=== PATIENT | female | born 1995 | race Caucasian/White ===

== ENCOUNTER 2017-02-01 12:06 | Inpatient (IN) | payer MEDICAID ==
[~2017-02-01] VITALS: Ht 160 cm; Wt 107.3 kg
[2017-02-01] MEDS ORDERED: IBUPROFEN 600 MG TAB PO PRN (12:30)
[2017-02-01] MEDS ORDERED: OXYTOCIN 30 UNITS/LR 500 ML IV SCH ×3 (12:30→15:30)
[2017-02-01] MEDS ORDERED: BUTORPHANOL 2 MG INJ IV PRN (12:30)
[2017-02-01] MEDS ORDERED: LIDOCAINE 1% (MPF) 30 ML INJ INJ PRN (12:30)
[2017-02-01] MEDS ORDERED: OXYTOCIN 30 UNITS/LR 500 ML IV PRN (12:30)
[2017-02-01] MEDS ORDERED: AMPICILLIN 2 GM/NS (PMX) 100 ML IV ONE (12:30)
[2017-02-01] MEDS ORDERED: CARBOPROST 250 MCG INJ IM PRN (12:30)
[2017-02-01] MEDS ORDERED: METHYLERGONOVINE 0.2 MG INJ IM PRN (12:30)
[2017-02-01] MEDS ORDERED: MISOPROSTOL 200 MCG TAB PR PRN (12:30)
[2017-02-01 12:38] VITALS: Ht 160 cm; Wt 107.3 kg
[2017-02-01 12:39] VITALS: BP 131/73; PULSE 71; RESP 18
[2017-02-01] MEDS ORDERED: LACTATED RINGER'S 1,000 ML IV PRN (13:00)
[2017-02-01 13:22] LABS: ADD SCAN DIFF NO
[2017-02-01 13:24] LABS: BASOPHIL # 0.1 10^3/ul (0.0-0.1); BASOPHILS % 0.5 % (0.0-2.0); EOSINOPHILS # 0.1 10^3/ul (0.0-0.5); EOSINOPHILS % 0.5 % (0.0-7.0); HEMATOCRIT 34.5 % (37.0-47.0); HEMOGLOBIN 11.6 g/dl (12.0-16.0); MEAN CORPUSCULAR HEMOGLOBIN 30.3 pg (29.0-33.0); MEAN CORPUSCULAR HGB CONC 33.6 g/dl (32.0-37.0); MEAN CORPUSCULAR VOLUME 90.1 fl (82.0-101.0); MEAN PLATELET VOLUME 9.7 fl (7.4-10.4); MONOCYTE # 0.5 10^3/ul (0.3-0.9); NEUTROPHIL # 7.3 10^3/ul (1.6-7.5); NEUTROPHILS % 72.4 % (39.0-77.0); PLATELET COUNT 295 10^3/UL (140-415); RED BLOOD COUNT 3.83 10^6/ul (4.20-5.40); RED CELL DISTRIBUTION WIDTH 13.5 % (11.5-14.5); WHITE BLOOD COUNT 10.1 10^3/ul (4.8-10.8)
[2017-02-01 13:36] LABS: INR 0.86; PROTIME 11.7 Sec (12.2-14.2); PT RATIO 0.9
[2017-02-01 13:37] LABS: PARTIAL THROMBOPLASTIN TIME 24.1 Sec (25.0-35.0)
[2017-02-01] MEDS: LACTATED RINGER'S 1,000 ML IV SCH ×2 (13:42→21:39)
[2017-02-01] MEDS: AMPICILLIN 1 GM/NS (PMX) 50 ML IV SCH ×2 (18:02→21:50)
[2017-02-01] MEDS ORDERED: MINERAL OIL LIGHT 10 ML VIAL TOP PRN (20:00)
[2017-02-01] MEDS ORDERED: FENTAnyl 2MCG/ML-ROPIV 0.2% 100 ML ONE (20:57)
[2017-02-01] MEDS ORDERED: FENTAnyl 2MCG/ML-ROPIV 0.2% 100 ML BAG EPI SCH (21:00)
[2017-02-01] MEDS ORDERED: NALOXONE (0.4 MG/ML) INJ IV PRN (21:00)
[2017-02-01] MEDS ORDERED: ONDANSETRON 4 MG INJ IV PRN (21:00)
[2017-02-01] MEDS ORDERED: DIPHENHYDRAMINE 50 MG INJ IV PRN (21:00)
[2017-02-02] MEDS: AMPICILLIN 1 GM/NS (PMX) 50 ML IV SCH ×3 (01:54→10:05)
[2017-02-02] MEDS: LACTATED RINGER'S 1,000 ML IV SCH ×2 (05:38→10:05)
[2017-02-02] MEDS ORDERED: MINERAL OIL LIGHT 10 ML VIAL TOP ONE (10:30)
--- NOTE | 2017-02-02 11:16 | LDN ---
Date/Time of Note Date/Time of Note DATE: 02/02/17 TIME: 11:12 Delivery Summary Normal spontaneous vaginal delivery of a baby boy from OP presentation, shoulders delivered without difficulty the rest of the baby's body followed, placenta spontaneous expulsion inspected complete post delivery vaginal exam no laceration, estimated blood loss 250cc Placenta Delivered: Spontaneously Perineum intact?: Yes Anesthesia type: Epidural Sponge & Needle done & correct: Yes All needle counts correct: Yes Any foreign bodies felt in the: No Problems: Infant Delivery Information Sex Infant Sex: male Apgars 1 Minute: 9 5 Minute: 9 Suctioning Nose & mouth suctioned at kristine: Yes Delee suction performed: No Umbilical Cord Umbilical cord with: 3 Vessels Cord presentations: nuchal cord Cord Blood was obtained: Yes GAB HALL MD Feb 02, 2017 11:15
--- NOTE | 2017-02-02 11:20 | HP ---
Date/Time of Note Date/Time of Note DATE: 02/02/17 TIME: 11:16 OB - History Hx of Present Free Text/Dictation 20 years old female 240 EDC of January 30 admitted to [facility] very early labor requires labor augmentation with Pitocin IV infusion, this patient has been under the care of the [facility] and her was not complicated with gestational diabetes -induced hypertension or any other surgical or medical conditions Allergies denies allergy to any known medication Social habit denies smoking or drinking Estimated Due Date: Jan 30, 2017 : 2 Para: 1 Care: Good Care Medical Complications: None Past Family/Social History * Past Medical, Surgical, Family and Obstetric Histories reviewed from chart. Rubella: immune RPR/VDRL: Negative GBS Status: Negative HBsAG: Negative OB Admission Exam Vital Signs Vital Signs Vital Signs Date Time Temp Pulse Resp B/P Pulse Ox O2 Delivery O2 Flow Rate FiO2 02/01/17 12:39 98.0 71 18 131/73 Room Air Physical Exam HEENT: WNL Heart: Rhythm Normal Lungs: Clear, Equal Abdomen: WNL Extremities: Normal Reflexes: Normal Effacement: 50% Station: -1 Membranes: Intact Heart Rate: 130's Accelerations: Accelerations Present Decelerations: No Decelerations Varibility: Minimum Contractions on Admission: 6-10 Minutes Apart Intensity: Mild Last 72 hours Lab Results CBC & BMP 02/01/17 13:10 OB Assessment/Plan Reason for admission: induction of labor, other GAB HALL MD Feb 02, 2017 11:20
[2017-02-02 13:15] VITALS: BP 134/66; PULSE 67; RESP 19
[2017-02-02] MEDS ORDERED: ACETAMINOPHEN/CODEINE #3 TAB PO PRN ×2 (13:30)
[2017-02-02] MEDS ORDERED: WITCH HAZEL/GLYCERIN PAD PR PRN (13:30)
[2017-02-02] MEDS ORDERED: DIBUCAINE 1% 30 GM OINT PR PRN (13:30)
[2017-02-02] MEDS ORDERED: OXYCODONE/ASPIRIN (4.88/325) TAB PO PRN ×2 (13:30)
[2017-02-02] MEDS ORDERED: ONDANSETRON 4 MG INJ IV PRN (13:30)
[2017-02-02] MEDS ORDERED: ACETAMINOPHEN 325 MG TAB PO PRN (13:30)
[2017-02-02] MEDS ORDERED: LANOLIN 7 GM TUBE TOP PRN (13:30)
[2017-02-02] MEDS ORDERED: BENZOCAINE 20% 56 ML SPRAY TOP PRN (13:30)
[2017-02-02 13:45] VITALS: BP 137/87; PULSE 76; RESP 18
[2017-02-02] MEDS: OXYTOCIN 30 UNITS/LR 500 ML IV SCH ×2 (15:15→19:17)
[2017-02-02 15:45] VITALS: BP 136/64; PULSE 67; RESP 20
[2017-02-02] MEDS: IBUPROFEN 600 MG TAB PO SCH ×2 (18:32→23:57)
[2017-02-02 19:45] VITALS: BP 131/76; PULSE 64; RESP 19
[2017-02-02] MEDS: SENNA/DOCUSATE NA (8.6MG/50MG) TAB PO SCH (21:35)
[2017-02-03 04:15] VITALS: BP 114/73; PULSE 76; RESP 18
[2017-02-03] MEDS: IBUPROFEN 600 MG TAB PO SCH ×3 (05:38→17:56)
[2017-02-03 08:00] LABS: ADD SCAN DIFF NO
[2017-02-03 08:16] LABS: BASOPHILS % 0.4 % (0.0-2.0); EOSINOPHILS # 0.1 10^3/ul (0.0-0.5); EOSINOPHILS % 1.3 % (0.0-7.0); HEMATOCRIT 29.3 % (37.0-47.0); HEMOGLOBIN 9.6 g/dl (12.0-16.0); LYMPHOCYTES # 2.5 10^3/ul (0.8-2.9); LYMPHOCYTES % 32.8 % (15.0-51.0); MEAN CORPUSCULAR HEMOGLOBIN 30.3 pg (29.0-33.0); MEAN CORPUSCULAR HGB CONC 32.8 g/dl (32.0-37.0); MEAN CORPUSCULAR VOLUME 92.4 fl (82.0-101.0); MEAN PLATELET VOLUME 10.1 fl (7.4-10.4); MONOCYTE # 0.5 10^3/ul (0.3-0.9); MONOCYTES % 6.1 % (0.0-11.0); NEUTROPHIL # 4.4 10^3/ul (1.6-7.5); NEUTROPHILS % 57.9 % (39.0-77.0); PLATELET COUNT 216 10^3/UL (140-415); RED BLOOD COUNT 3.17 10^6/ul (4.20-5.40); RED CELL DISTRIBUTION WIDTH 13.8 % (11.5-14.5); WHITE BLOOD COUNT 7.6 10^3/ul (4.8-10.8)
[2017-02-03 08:27] VITALS: BP 109/53; PULSE 57; RESP 18
[2017-02-03] MEDS: SENNA/DOCUSATE NA (8.6MG/50MG) TAB PO SCH ×2 (09:18→20:41)
[2017-02-03 16:24] VITALS: BP 120/63; PULSE 57; RESP 18
[2017-02-03 19:55] VITALS: BP 124/74; PULSE 76; RESP 18
--- NOTE | 2017-02-03 21:32 | NSTRPT ---
NST Information Datetime Report Generated by CPN: 02/03/2017 21:32 Datetime: 02/01/2017 10:43 NST Information EGA: 40.2 Datetime: 02/01/2017 10:30 Test Number: 1 Time on Monitor: 02/01/2017 11:02 Time off Monitor: 02/01/2017 11:37 NST Duration (Min): 35 Reason for NST: Other Reason for NST Other: Post Dates Test and Monitor Explained: Monitor Explained; Test Explained; Verbalized Understanding Pulse: 66 Resp: 18 SBP: 129 DBP: 77 Test Evaluation NST Interventions: PO Hydration Patient States Movement: Present Contraction Frequency: Q7, PT STATES MILD FHR Baseline : 120 Variability: Moderate 6-25bpm Accelerations: 15X15 Decelerations: None FHR Category: Category I NST Results: Reactive Comments: To u/s CAROLYN-5.2 , [facility], 1130-Report called to Dr Serrano, order received to admit to L_D for delivery. Report called to L_ D, POC explained to pt, states understanding _ denies further questions at this time. 1145-Pt to L_D for admission Electronically Signed By E-Signature: with User ID: [id number]
[2017-02-04] MEDS: IBUPROFEN 600 MG TAB PO SCH ×4 (00:10→17:46)
[2017-02-04 04:20] VITALS: BP 128/65; PULSE 78; RESP 18
[2017-02-04 07:30] VITALS: BP 126/60; PULSE 67; RESP 18
[2017-02-04] MEDS ORDERED: MEASLES,MUMPS,RUBELLA VACCINE INJ SC* ONE (09:00)
[2017-02-04] MEDS: SENNA/DOCUSATE NA (8.6MG/50MG) TAB PO SCH (09:26)
--- NOTE | 2017-02-04 11:36 | DS ---
Date/Time of Note Date/Time of Note DATE: 02/04/17 TIME: 11:35 Obstetrical Discharge Record Final Diagnosis Final Diagnosis: Term delivered Vaginal Delivery Obstetrical Delivery: Spontaneous Condition on Discharge Physical Assessment Last Vitals: Post normal vaginal delivery day 2 VSs stable afebrile abdomen is uterus firm lochia normal extremity normal patient discharged home with recommendation of follow up the in 2 weeks at the clinic. Current Medications Medications (Trade) Dose Ordered Sig/[place] Route PRN Reason Start Time Stop Time Status Last Admin Dose Admin Lactated Ringer's 1,000 ml @ 125 mls/hr Q8H IV 02/01/17 12:23 02/02/17 13:29 DC 02/02/17 10:05 Ampicillin 100 ml @ 100 mls/hr ONCE ONCE IV 02/01/17 12:30 02/01/17 13:29 DC 02/01/17 13:42 Ampicillin (Ampicillin 1 Gm/ NS (Pmx)) 50 ml @ 100 mls/hr Q4H IV 02/01/17 16:30 02/02/17 13:29 DC 02/02/17 10:05 Butorphanol Tartrate (Stadol) 2 mg Q2H PRN IV PAIN 02/01/17 12:30 02/02/17 13:29 DC Lidocaine 30 ml 30 ml ONCE PRN INJ EPISIOTOMY/TEARING 02/01/17 12:30 02/02/17 13:29 DC Oxytocin/Lactated Ringer's 500 ml @ 125 mls/hr ONCE -MAY REPEAT X1 IV 02/01/17 12:30 02/02/17 13:29 DC 02/02/17 11:29 Oxytocin/Lactated Ringer's 500 ml @ 125 mls/hr ONCE IV 02/01/17 12:30 02/02/17 13:29 DC Ibuprofen 600 mg 600 mg ONCE PRN PO Mild Pain (Pain Score 1-3) 02/01/17 12:30 02/02/17 13:29 DC Lactated Ringer's 1,000 ml @ 2,000 mls/hr Q30M PRN IV PRE-EPIDURAL BOLUS 02/01/17 13:00 02/02/17 13:29 DC 02/01/17 20:13 Oxytocin/Lactated Ringer's 500 ml @ 0 mls/hr ONCE PRN IV For Hemorrhage Management 02/01/17 12:30 02/02/17 13:29 DC Methylergonovine Maleate (Methergine) 0.2 mg ONCE PRN IM VAGINAL BLEEDING 02/01/17 12:30 02/02/17 13:40 DC Carboprost Tromethamine (Hemabate) 250 mcg ONCE PRN IM VAGINAL BLEEDING 02/01/17 12:30 02/02/17 13:40 DC Misoprostol 1000 mcg 1,000 mcg ONCE PRN TN VAGINAL BLEEDING 02/01/17 12:30 02/02/17 13:40 DC Oxytocin/Lactated Ringer's 500 ml @ 0 mls/hr Q0M IV 02/01/17 15:30 02/02/17 13:29 DC 02/01/17 15:16 Mineral Oil (Muri-Lube) ONCE PRN TOP LABOR INDUCTION 02/01/17 20:00 02/01/17 23:59 DC Naloxone HCl (Narcan) 0.1 mg Q2M PRN IV FOR RESP RATE 8 OR LESS 02/01/17 21:00 02/02/17 13:29 DC Diphenhydramine HCl (Benadryl) 25 mg Q6H PRN IV ITCHING 02/01/17 21:00 02/02/17 13:29 DC Ondansetron HCl (Zofran Inj) 4 mg Q6H PRN IV NAUSEA AND/OR VOMITING 02/01/17 21:00 02/02/17 13:29 DC 02/02/17 10:10 Fentanyl/ Ropivacaine 100 ml 100 ml EPIDURAL INFUSION EPI 02/01/17 21:00 02/02/17 13:29 DC 02/02/17 06:34 Fentanyl/ Ropivacaine 100 ml @ STK-MED ONCE .ROUTE 02/01/17 20:57 02/01/17 20:58 DC Mineral Oil 20 ml 20 ml ONCE ONCE TOP 02/02/17 10:30 02/02/17 10:31 DC 02/02/17 11:28 Oxytocin/Lactated Ringer's 500 ml @ 125 mls/hr Q4H IV 02/02/17 13:27 02/02/17 21:26 DC 02/02/17 19:17 Ibuprofen (Motrin) 600 mg Q6 PO 02/02/17 18:00 02/04/17 06:03 Acetaminophen (Tylenol Tab) 650 mg Q4H PRN PO PAIN LEVEL 1-5 02/02/17 13:30 Acetaminophen/ Codeine Phosphate (Tylenol No.3) 1 tab Q4H PRN PO PAIN LEVEL 1-5 02/02/17 13:30 Acetaminophen/ Codeine Phosphate (Tylenol No.3) 2 tab Q4H PRN PO PAIN LEVEL 6-10 02/02/17 13:30 Oxycodone/Aspirin (Percodan) 1 tab Q3H PRN PO PAIN LEVEL 1-5 02/02/17 13:30 02/02/17 15:16 Oxycodone/Aspirin (Percodan) 2 tab Q3H PRN PO PAIN LEVEL 6-10 02/02/17 13:30 Ondansetron HCl (Zofran Inj) 4 mg Q6H PRN IV NAUSEA AND/OR VOMITING 02/02/17 13:30 Senna/Docusate Sodium (Senokot-S) 1 tab BID PO 02/02/17 21:00 02/04/17 09:26 Witch Janay/ Glycerin (Tucks Pads) 1 pad BEDSIDE MEDICATION PRN TN HEMORRHOID/EPISIOTMY PAIN 02/02/17 13:30 Benzocaine (Dermoplast Mcgregor) 1 spray BEDSIDE MEDICATION PRN TOP HEMORRHOID/EPISIOTMY PAIN 02/02/17 13:30 Dibucaine (Nupercainal) 1 applic BEDSIDE MEDICATION PRN TN HEMORRHOID/EPISIOTMY PAIN 02/02/17 13:30 Lanolin (Klr-Z-Lhgsav) 1 applic BEDSIDE MEDICATION PRN TOP BEDSIDE FOR NAWAF TO NIPPLES 02/02/17 13:30 02/02/17 15:15 Measles/Mumps/ Rubella Vaccine Live (Mmr Ii Vaccine) 0.5 ml ONCE ONCE SC* 02/04/17 09:00 02/04/17 09:01 DC Voiding: Yes Bowel Movement: Yes Breast: Soft, non-tender, Filling Calf Tenderness: No Patient Condition: Good GAB HALL MD Feb 04, 2017 11:36
--- NOTE | 2017-02-04 11:38 | PD.PPDC ---
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
--- NOTE | 2017-02-04 14:18 | RADRPT ---
PROCEDURE: XR Right Hip. CLINICAL INDICATION: Right hip pain TECHNIQUE: AP and frog lateral views of the right hip were performed. COMPARISON: None. FINDINGS: Study is significant limited due to underpenetration secondary patient body habitus. There is gross ly normal mineralization and alignment of the bones of the right hip.. No fracture or osseous lesion is identified. Joint spaces are well maintained. There is no evidence of osteophyte erosion. The s oft tissues are unremarkable. IMPRESSION: 1. Study mildly limited by underpenetration secondary to patient body habitus. 2. Otherwise unremarkable right hip series. RPTAT: KK .Goran Maki MD, MD Date Time Electronically viewed and signed by .Goran Maki MD, on 02/04/2017 14:18 .B/
[2017-02-04 15:45] VITALS: BP 132/67; PULSE 73; RESP 18
== END 2017-02-04 18:58 | disposition home or self-care (01) | DRG 775 ==
LOC: L-D 12:06 → PP1 02-02 13:15
PROVIDERS: ADMIT Obstetrics & Gynecology; ATTEND Obstetrics & Gynecology
PROC: 10E0XZZ Delivery of Products of Conception, External Approach (ICD-10-PCS; principal; 2017-02-02)
DX: O80 Encounter for full-term uncomplicated delivery (principal); Z37.0 Single live birth; Z3A.38 38 weeks gestation of pregnancy
CPT/HCPCS: 62319; 73510; 85025; 85610; 85730; 86592; 86900; 86901; 87340; J0290; J2405; J2590; J3010; J7120